=== PATIENT | female | born 1945 | race Caucasian/White ===

== ENCOUNTER 2021-11-24 22:19 | Emergency (ER) | payer OTHER ==
[2021-11-25 00:30] LABS: SARS-COV-2 RT PCR NEGATIVE (NEGATIVE)
--- NOTE | 2021-11-25 01:48 | ER ---
Nurse's Notes [facility] Name: Sandy Bui Age: 76 yrs Sex: Female : 1945 Arrival Date: 11/24/2021 Time: 22:21 Bed 16 Private MD: Diagnosis: Acute upper respiratory infection, unspecified;Viral infection, unspecified Presentation: 11/24 22:38 Chief complaint: Patient states: I think I might have covid, I woke up with a horrible vc1 sore throat, my nasal passages are burning, I have a headache, my ears burn. My niece and her daughter both have covid and this is how they started out. I wanted to get checked out since I do have COPD. Coronavirus screen: Vaccine status: Patient reports receiving the 2nd dose of the covid vaccine. Moderna for 1st, 2nd, and booster. congestion, cough unrelated to allergies, fatigue, fever, headache, muscle pain, runny nose, sore throat, Client presents with at least one sign or symptom that may indicate coronavirus-19. Standard/surgical mask placed on the client. Ebola Screen: No symptoms or risks identified at this time. Onset: The symptoms/episode began/occurred this morning. Anaphylaxis evaluation, no signs or symptoms of anaphylaxis were noted. Risk Assessment: Do you want to hurt yourself or someone else? Patient reports no desire to harm self or others. Onset of symptoms was November 24, 2021. 22:38 Method Of Arrival: Ambulatory vc1 22:51 Initial Sepsis Screen: Does the patient meet any 2 criteria? No. Patient's initial vc1 sepsis screen is negative. Does the patient have a suspected source of infection? No. Patient's initial sepsis screen is negative. 22:51 Acuity: LISA 4 vc1 Triage Assessment: 22:44 General: Appears in no apparent distress. comfortable, Behavior is calm, cooperative, vc1 appropriate for age. Pain: Complains of pain in burning in nasal passages, throat, and ears. Pain does not radiate. Pain currently is 3 out of 10 on a pain scale. Quality of pain is described as burning. EENT: Reports nasal congestion nasal discharge pain when swallowing. Neuro: No deficits noted. Historical: - Allergies: 22:41 Sulfa (Sulfonamide Antibiotics); vc1 22:41 Codeine; vc1 - Home Meds: 22:41 duloxetine 20 mg oral CDRS [Active]; amlodipine 2.5 mg tab [Active]; potassium chloride vc1 10 mEq Oral cpER [Active]; gabapentin 300 mg oral cap [Active]; furosemide 20 mg Oral tab [Active]; tramadol 50 mg Oral tab [Active]; 22:44 Trilegy Inhaler [Active]; vc1 - PMHx: 22:41 Chronic obstructive lung disease; Fibromyalgia; vc1 - PSHx: 22:41 Total abdominal hysterectomy; vc1 - Immunization history:: Adult Immunizations up to date, Client reports receiving the 2nd dose of the Covid vaccine, Moderna plus booster. - Social history:: Smoking status: Patient denies any tobacco usage or history of. Screenin:53 Abuse screen: Denies threats or abuse. Nutritional screening: No deficits noted. vc1 Tuberculosis screening: No symptoms or risk factors identified. Fall Risk None identified. Assessment: 22:54 Respiratory: Airway is patent Respiratory effort is even, unlabored, Breath sounds are vc1 diminished in left lower lobe and right lower lobe. Vital Signs: 22:47 BP 154 / 73; Pulse 65; Resp 14; Temp 98.6; Pulse Ox 96% on R/A; Weight 70.31 kg; Height vc1 5 ft. 4 in. (162.56 cm); Pain 3/10; 22:51 BP 154 / 73; Pulse 65; Resp 14; Temp 98.6; Pulse Ox 96% on R/A; Weight 70.31 kg; Height vc1 5 ft. 4 in. (162.56 cm); Pain 3/10; 22:53 BP 142 / 73; vc1 22:51 Body Mass Index 26.61 (70.31 kg, 162.56 cm) vc1 ED Course: 22:21 Patient arrived in ED. bp1 22:47 Arm band placed on right wrist. vc1 22:52 Triage completed. vc1 22:57 COVID swab sent to lab. Flu and/or RSV swab sent to lab. Strep swab sent to lab. lt3 22:58 Patient has correct armband on for positive identification. vc1 23:15 Julio Martinez MD is Attending Physician. kdr 23:34 Lucio Gould RN is Primary Nurse. mr2 23:58 No provider procedures requiring assistance completed. Patient did not have IV access mr2 during this emergency room visit. Administered Medications: No medications were administered Outcome: 11/25 01:47 Discharge ordered by . raul 02:04 Discharged to home ambulatory. mr2 02:04 Condition: stable 02:04 Discharge instructions given to patient. 02:04 Patient left the ED. mr2 Signatures: Julio Martinez MD MD kdr Pania[place], Brittany bp1 Reynard, Mike, RN RN mr2 Patience Martinez 3 Rand Aquino RN RN vc1
--- NOTE | 2021-11-25 01:48 | EDPHYS ---
Physician Documentation [facility] Name: Sandy Bui Age: 76 yrs Sex: Female : 1945 Arrival Date: 11/24/2021 Time: 22:21 Bed 16 Private MD: ED Physician Julio Martinez HPI: 11/25 01:43 This 76 yrs old Female presents to ER via Ambulatory with complaints of Cough, Runny kdr Nose, Sneezing. 01:43 The patient or guardian reports cough, that is intermittent, described as mild, flu kdr symptoms, arthralgias, myalgias, no appetite. Onset: The symptoms/episode began/occurred yesterday. Severity of symptoms: At their worst the symptoms were mild, just prior to arrival, in the emergency department the symptoms are unchanged. The patient has not experienced similar symptoms in the past. The patient has not recently seen a physician. Woke today with severe headache, sore throat, congested nasal passages and her ears burning. She indicated that her niece and granddaughter both have COVID and that they reported similar symptoms at the onset. She is otherwise stable and does not appear acutely toxic on presentation. Historical: - Allergies: 11/24 22:41 Sulfa (Sulfonamide Antibiotics); vc1 22:41 Codeine; vc1 - Home Meds: 22:41 duloxetine 20 mg oral CDRS [Active]; amlodipine 2.5 mg tab [Active]; potassium chloride vc1 10 mEq Oral cpER [Active]; gabapentin 300 mg oral cap [Active]; furosemide 20 mg Oral tab [Active]; tramadol 50 mg Oral tab [Active]; 22:44 Trilegy Inhaler [Active]; vc1 - PMHx: 22:41 Chronic obstructive lung disease; Fibromyalgia; vc1 - PSHx: 22:41 Total abdominal hysterectomy; vc1 - Immunization history:: Adult Immunizations up to date, Client reports receiving the 2nd dose of the Covid vaccine, Moderna plus booster. - Social history:: Smoking status: Patient denies any tobacco usage or history of. ROS: 11/25 01:44 Constitutional: Negative for fever, chills, and weight loss, Eyes: Negative for injury, kdr pain, redness, and discharge, Neck: Negative for injury, pain, and swelling, Cardiovascular: Negative for chest pain, palpitations, and edema, Respiratory: Negative for shortness of breath, cough, wheezing, and pleuritic chest pain, Abdomen/GI: Negative for abdominal pain, nausea, vomiting, diarrhea, and constipation, Back: Negative for injury and pain, : Negative for injury, bleeding, discharge, and swelling, MS/Extremity: Negative for injury and deformity, Skin: Negative for injury, rash, and discoloration, Neuro: Negative for headache, weakness, numbness, tingling, and seizure activity. Psych: Negative for depression, anxiety, suicide ideation, homicidal ideation, and hallucinations, Allergy/Immunology: Negative for hives, rash, and allergies, Endocrine: Negative for neck swelling, polydipsia, polyuria, polyphagia, and marked weight changes, Hematologic/Lymphatic: Negative for swollen nodes, abnormal bleeding, and unusual bruising. Respiratory: Positive for cough, Negative for dyspnea on exertion, hemoptysis, orthopnea, pleurisy, shortness of breath, sputum production, wheezing. Exam: 01:44 Constitutional: This is a well developed, well nourished patient who is awake, alert, kdr and in no acute distress. Head/Face: Normocephalic, atraumatic. Eyes: Pupils equal round and reactive to light, extra-ocular motions intact. Lids and lashes normal. Conjunctiva and sclera are non-icteric and not injected. Cornea within normal limits. Periorbital areas with no swelling, redness, or edema. Neck: Trachea midline, no thyromegaly or masses palpated, and no cervical lymphadenopathy. Supple, full range of motion without nuchal rigidity, or vertebral point tenderness. No Meningismus. Chest/axilla: Normal chest wall appearance and motion. Nontender with no deformity. No lesions are appreciated. Cardiovascular: Regular rate and rhythm with a normal S1 and S2. No gallops, murmurs, or rubs. Normal PMI, no JVD. No pulse deficits. Respiratory: Lungs have equal breath sounds bilaterally, clear to auscultation and percussion. No rales, rhonchi or wheezes noted. No increased work of breathing, no retractions or nasal flaring. Abdomen/GI: Soft, non-tender, with normal bowel sounds. No distension or tympany. No guarding or rebound. No evidence of tenderness throughout. Back: No spinal tenderness. No costovertebral tenderness. Full range of motion. Skin: Warm, dry with normal turgor. Normal color with no rashes, no lesions, and no evidence of cellulitis. MS/ Extremity: Pulses equal, no cyanosis. Neurovascular intact. Full, normal range of motion. Neuro: Awake and alert, GCS 15, oriented to person, place, time, and situation. Cranial nerves II-XII grossly intact. Motor strength 5/5 in all extremities. Sensory grossly intact. Cerebellar exam normal. Normal gait. Psych: Awake, alert, with orientation to person, place and time. Behavior, mood, and affect are within normal limits. Vital Signs: 11/24 22:47 BP 154 / 73; Pulse 65; Resp 14; Temp 98.6; Pulse Ox 96% on R/A; Weight 70.31 kg; Height vc1 5 ft. 4 in. (162.56 cm); Pain 3/10; 22:51 BP 154 / 73; Pulse 65; Resp 14; Temp 98.6; Pulse Ox 96% on R/A; Weight 70.31 kg; Height vc1 5 ft. 4 in. (162.56 cm); Pain 3/10; 22:53 BP 142 / 73; vc1 22:51 Body Mass Index 26.61 (70.31 kg, 162.56 cm) vc1 MDM: 11/25 01:44 Data reviewed: vital signs, nurses notes, lab test result(s). Counseling: I had a kdr detailed discussion with the patient and/or guardian regarding: the historical points, exam findings, and any diagnostic results supporting the discharge/admit diagnosis, lab results, radiology results, the need for outpatient follow up. 01:47 Patient medically screened. kdr 11/24 22:54 Order name: Strep; Complete Time: 01:41 vc1 11/24 22:54 Order name: Group A Streptococcus Rapid Sc; Complete Time: 00:27 EDMS 11/24 23:55 Order name: Throat Culture EDMS Administered Medications: No medications were administered Disposition Summary: 11/25/21 01:47 Discharge Ordered Location: Home kdr Problem: new kdr Symptoms: are unchanged kdr Condition: Stable kdr Diagnosis - Acute upper respiratory infection, unspecified kdr - Viral infection, unspecified kdr Followup: kdr - With: Private Physician - When: 2 - 3 days - Reason: If symptoms return, Further diagnostic work-up, Recheck today's complaints, Continuance of care, Re-evaluation by your physician Discharge Instructions: - Discharge Summary Sheet kdr - Viral Respiratory Infection kdr - COVID-19 kdr - COVID-19: What Your Test Results Mean - [facility] kdr - COVID-19 Frequently Asked Questions kdr - 3 Eli Steps to Take While Waiting for Your COVID-19 Test Result - [facility] kdr - 10 Things You Can Do to Manage Your COVID-19 Symptoms at Home - [facility] kdr - COVID-19: Quarantine vs. Isolation - [facility] kdr Forms: - Medication Reconciliation Form kdr - Thank You Letter kdr Signatures: Dispatcher [employer] Julio Bhatia MD MD kdr Rand Aquino RN RN vc1
[2021-11-25 02:10] VITALS: TEMP 98.6; O2SAT 96
[2021-11-25 02:13] VITALS: BP 142/73
== END 2021-11-25 02:04 | disposition home or self-care (01) ==
LOC: ER 22:19
DX: J06.9 Acute upper respiratory infection, unspecified (principal); Z20.822 Contact with and (suspected) exposure to COVID-19; Z88.2 Allergy status to sulfonamides
CPT/HCPCS: 87070; 87081; 0241U; 99283

== ENCOUNTER 2024-03-28 17:13 | Emergency (ER) | payer OTHER ==
[2024-03-28] MEDS ORDERED: TDAP (DIPHTH,PERTUSS(ACELL),TET VAC) 0.5 ML VIAL IMVAC ONE (17:38)
[2024-03-28] MEDS ORDERED: LIDOCAINE 1% MPF 5 ML VIAL ONE (17:38)
--- NOTE | 2024-03-28 18:30 | ER ---
Nurse's Notes [facility] Name: Sandy Bui Age: 78 yrs Sex: Female : 1945 Arrival Date: 03/28/2024 Time: 17:13 Bed 4 Private MD: Diagnosis: Laceration without foreign body of knee Presentation: 03/28 17:17 Coronavirus screen: Client denies travel out of the [place] in the last 14 days. At this ll1 time, the client does not indicate any symptoms associated with coronavirus-19. Ebola Screen: Patient denies travel to an Ebola-affected area in the 21 days before illness onset. Initial Sepsis Screen: Does the patient meet any 2 criteria? No. Patient's initial sepsis screen is negative. Does the patient have a suspected source of infection? No. Patient's initial sepsis screen is negative. Risk Assessment: Do you want to hurt yourself or someone else? Patient reports no desire to harm self or others. 17:17 Method Of Arrival: Ambulatory 1 17:20 Chief complaint: Patient states: L knee laceration 30 min [employer]. Reaching for a chain on ll1 ceiling fan, fell onto L knee. Onset of symptoms was March 28, 2024. 17:20 Acuity: LISA 3 ll1 Triage Assessment: 17:28 General: Appears uncomfortable, Behavior is calm, cooperative, appropriate for age. ll1 Pain: Complains of pain in L knee Quality of pain is described as aching. Derm: Reports laceration L knee. Musculoskeletal: Reports pain in L knee. Injury Description: Laceration. Historical: - Allergies: 17:17 Codeine; ll1 17:17 Sulfa (Sulfonamide Antibiotics); ll1 17:17 Soy; ll1 - PMHx: 17:17 Chronic obstructive lung disease; Fibromyalgia; ll1 - PSHx: 17:17 Total abdominal hysterectomy; ll1 - Immunization history:: Adult Immunizations up to date. - Infectious Disease History:: Denies. - Social history:: Smoking status: Patient denies any tobacco usage or history of. Screenin:46 [facility] ED Fall Risk Assessment (Adult) History of falling in the last 3 months, iw including since admission Yes- single mechanical fall (1 pt) Confusion or Disorientation No (0 pts) Intoxicated or Sedated No (0 pts) Impaired Gait No (0 pts) Mobility Assist Device Used No (0 pt) Altered Elimination No (0 pt) Score/Fall Risk Level 0 - 2 = Low Risk. Abuse screen: Denies threats or abuse. Denies injuries from another. Nutritional screening: No deficits noted. Tuberculosis screening: No symptoms or risk factors identified. Assessment: 17:45 General: Appears in no apparent distress. Behavior is calm, cooperative. Pain: iw Complains of pain in left knee. Neuro: Level of Consciousness is awake, alert, obeys commands, Oriented to person, place, time, situation, Moves all extremities. Cardiovascular: Patient's skin is warm and dry. Respiratory: Respiratory effort is even, unlabored, Respiratory pattern is regular, symmetrical. GI: No signs and/or symptoms were reported involving the gastrointestinal system. Derm: Skin is intact, is healthy with good turgor. Musculoskeletal: Range of motion: intact in all extremities. Injury Description: Laceration sustained to left knee is 0.5 to 2.5 cm long, was sustained 1-2 hours ago. a small amount of bleeding noted at this time. Vital Signs: 17:20 BP 173 / 61; Pulse 73; Resp 17; Temp 97.1; Pulse Ox 98% ; Weight 71.67 kg; Height 5 ft. ll1 4 in. ; Pain 5/10; 17:20 Body Mass Index 27.12 (71.67 kg, 162.56 cm) ll1 17:20 Pain Scale: Adult ll1 ED Course: 17:16 Patient arrived in ED. ll1 17:17 Arm band placed on. ll1 17:18 Catrachita Cowart PA-C [facility]. sb4 17:18 Momo Mejia MD is Attending Physician. sb4 17:22 Triage completed. ll1 17:29 Patient placed in an exam room, on a stretcher. ll1 17:36 Blanca Van, DIETER is Primary Nurse. iw 18:30 Assist provider with laceration repair on left knee that was 2.5 cm. or less using iw sutures. Set up tray. Performed by Catrachita Cowart PA-C Dressed with 4X4s, Patient tolerated well. Patient did not have IV access during this emergency room visit. 18:45 Patient has correct armband on for positive identification. Provided Education on: . iw Administered Medications: 17:44 Drug: Boostrix Tdap IM 0.5 ml IM once; as a single dose Route: IM; Site: left deltoid; iw 18:29 Drug: Lidocaine Infiltration (1 %) 5 ml 5 ml Infiltration once; to bedside Volume: 5 sb4 ml; Route: Infiltration; Medication: 17:46 Vaccine Information Statement (VIS) provided today. Questions and/or concerns iw addressed. VIS edition date: June 23, 2021. Outcome: 18:30 Discharge ordered by MD. vera4 18:45 Discharged to home ambulatory, iw 18:45 Condition: good 18:45 Discharge instructions given to patient, Instructed on discharge instructions, follow up and referral plans. medication usage, Demonstrated understanding of instructions, follow-up care, medications, 18:45 Patient left the ED. iw Signatures: Blanca Van RN RN iw Lilliam Ribeiro RN RN ll1 Catrachita Cowart, PADimasC PATeddy sb4 Corrections: (The following items were deleted from the chart) 17:23 17:20 Pulse 73bpm; Resp 17bpm; Pulse Ox 98%; Temp 97.1F; 71.67 kg; Height 5 ft. 4 in.; ll1 BMI: 27.1; Pain 5/10, Adult; ll1 17:33 17:20 Chief complaint: Patient states: L knee laceration just 30 min [employer]. Reaching for ll1 a chain on ceiling fan, fell onto L knee. ll1
--- NOTE | 2024-03-28 18:30 | EDPHYS ---
Physician Documentation [facility] Name: Sandy Bui Age: 78 yrs Sex: Female : 1945 Arrival Date: 03/28/2024 Time: 17:13 Bed 4 Private MD: ED Physician Momo Mejia HPI: 03/28 17:35 This 78 yrs old Female presents to ER via Ambulatory with complaints of Knee laceration.sb4 17:35 The patient has a laceration occurred at an office, and there are no complicating sb4 factors. The injury was accidental. The laceration(s) is(are) located on the left knee. Onset: The symptoms/episode began/occurred just prior to arrival. Associated signs and symptoms: The patient has no apparent associated signs or symptoms. The patient has not experienced similar symptoms in the past. The patient has not recently seen a physician. was reaching up for the overhead fan cord, fell forward onto knees, sustained laceration to left knee. Historical: - Allergies: 17:17 Codeine; ll1 17:17 Sulfa (Sulfonamide Antibiotics); ll1 17:17 Soy; ll1 - PMHx: 17:17 Chronic obstructive lung disease; Fibromyalgia; ll1 - PSHx: 17:17 Total abdominal hysterectomy; ll1 - Immunization history:: Adult Immunizations up to date. - Infectious Disease History:: Denies. - Social history:: Smoking status: Patient denies any tobacco usage or history of. ROS: 17:35 Constitutional: Negative for fever, chills, and weight loss, sb4 17:35 Skin: Positive for laceration(s), of the left knee, 17:35 All other systems are negative, Exam: 17:35 Constitutional: This is a well developed, well nourished patient who is awake, alert, sb4 and in no acute distress. Head/Face: Normocephalic, atraumatic. Eyes: Extra-ocular motions intact. Periorbital areas with no swelling, redness, or edema. ENT: Mucous membranes moist. MS/ Extremity: Pulses equal, no cyanosis. Neurovascular intact. Full, normal range of motion. Neuro: Awake and alert, GCS 15, oriented to person, place, time, and situation. Motor strength 5/5 in all extremities. Sensory grossly intact. 17:35 Skin: injury, laceration(s), the wound is approximately 3 cm(s), with a depth of .3 cm(s), of the left knee, that can be described as clean, no foreign body, linear, with mild bleeding, Vital Signs: 17:20 BP 173 / 61; Pulse 73; Resp 17; Temp 97.1; Pulse Ox 98% ; Weight 71.67 kg; Height 5 ft. ll1 4 in. ; Pain 5/10; 17:20 Body Mass Index 27.12 (71.67 kg, 162.56 cm) ll1 17:20 Pain Scale: Adult ll1 Laceration: 18:34 Wound Repair of 4cm ( 1.6in ) subcutaneous laceration to left knee. Distal sb4 neuro/vascular/tendon intact. Anesthesia: Local anesthetic administered with 5 mls of 1% lidocaine. Wound prep: Moderate cleansing with betadine by me, Wound irrigation with saline by me, Wound explored. Skin closed with 4 4-0 Prolene using simple sutures and sterile technique. Dressed with non-adherent dressing. Patient tolerated well. MDM: 17:19 Patient medically screened. sb4 18:29 Data reviewed: vital signs, nurses notes, and as a result, I will discharge patient. sb4 Counseling: I had a detailed discussion with the patient and/or guardian regarding the historical points, exam findings, and any diagnostic results supporting the discharge/admit diagnosis, the need for outpatient follow up, for suture removal in 10-14 days. 03/28 18:29 Order name: Wound dressing; Complete Time: 18:44 sb4 Administered Medications: 17:44 Drug: Boostrix Tdap IM 0.5 ml IM once; as a single dose Route: IM; Site: left deltoid; iw 18:29 Drug: Lidocaine Infiltration (1 %) 5 ml 5 ml Infiltration once; to bedside Volume: 5 sb4 ml; Route: Infiltration; Disposition Summary: 03/28/24 18:30 Discharge Ordered Notes: Location: Home sb4 Problem: new sb4 Symptoms: have improved sb4 Condition: Stable sb4 Diagnosis - Laceration without foreign body of knee sb4 Followup: sb4 - With: Private Physician - When: 10 - 14 days - Reason: Staple/Suture removal Discharge Instructions: - Discharge Summary Sheet sb4 - Laceration Care, Adult, [id number] sb4 Forms: - Patient Portal Instructions sb4 - Leadership Thank You Letter sb4 Signatures: Blanca Van, RN RN Lilliam Rogers RN RN ll1 Catrachita Cowart PA-C PA-C sb4
[2024-03-28 19:27] VITALS: BP 173/61; TEMP 97.1; O2SAT 98
== END 2024-03-28 18:45 | disposition home or self-care (01) ==
LOC: ER 17:13
PROC: 0HQLXZZ Repair Left Lower Leg Skin, External Approach (ICD-10-PCS; principal; 2024-03-28)
DX: S81.012A Laceration without foreign body, left knee, initial encounter (principal); Z88.2 Allergy status to sulfonamides; Z88.5 Allergy status to narcotic agent; Z91.018 Allergy to other foods
CPT/HCPCS: 96372; 99284; 12002; J2001

== ENCOUNTER 2024-08-17 17:51 | Emergency (ER) | payer OTHER ==
[2024-08-17 18:56] LABS: Absolute Basophils 0.1 K/uL (0-0.5); Absolute Eosinophils 0.5 K/uL (0-0.5); Absolute Lymphocytes (CBC) 2.1 K/uL (0.7-4.9); Absolute Monocytes 0.7 K/uL (0.1-1.3); Absolute Neutrophil 5.9 K/uL (1.8-8.0); Basophils % 0.7 % (0-1.3); Eosinophils % 5.5 % (0-4.4); Hemoglobin 12.4 g/dL (12.0-15.0); Lymphocytes % 22.2 % (15.3-44.8); MCH 30.5 pg (27.0-35.0); MCHC 32.5 g/dL (32.0-36.0); MCV 93.9 fL (80-100); Monocytes % 7.7 % (3.3-12.3); Neutrophils % 63.9 % (41.7-73.7); Platelets 268 thou/uL (152-406); RBC Red Blood Cell Count 4.05 M/uL (3.86-4.86); Red Cell Distribution Width 14.4 % (12.1-15.2)
[2024-08-17] MEDS ORDERED: FENTANYL CITR 100 MCG/2 ML ONE ×2 (18:57→23:12)
[2024-08-17] MEDS ORDERED: ONDANSETRON 4 MG/2 ML VIAL ONE (18:57)
[2024-08-17 19:05] LABS: PTT, Activated Partial Thromb 30.5 SECONDS (24.3-36.9); Protime INR 1.07
[2024-08-17 19:12] LABS: Albumin 2.5 g/dL (3.4-5.0); Albumin/Globulin Ratio 0.7 (1.1-1.8); Anion Gap 5.4 mEq/L (5.0-15.0); Bilirubin Total 0.5 mg/dL (0.2-1.0); Globulin 3.6 g/dL (2.3-3.5); Potassium 3.4 mEq/L (3.5-5.1); Protein, Total 6.1 g/dL (6.4-8.2)
--- NOTE | 2024-08-17 19:31 | RAD REPORT ---
EXAMINATION: Tib Fib Right CLINICAL INDICATION: Leg pain FINDINGS: An intramedullary juan r and screws affix an oblique fracture mid to distal right tibia. Mild to moderat e displacement of the fracture fragments. The fracture appears subacute. 3.5 cm density surrounds the fracture site. It is of uncertain etiology but presumably is postsurgical. Sideplate and screws affix a distal fibular fracture. Mildly displaced fracture proximal fibula.
--- NOTE | 2024-08-17 20:55 | RAD REPORT ---
EXAM:Extremity Venous Uni Ltd HISTORY: Leg pain TECHNIQUE: Sonographic evaluation right lower extremity performed.Grayscale, color and spectral roseanne sis performed on all vessels COMPARISON: None. FINDINGS: Right common femoral, superficial femoral, greater saphenous, popliteal and right posterior tibial veins are compressible and demonstrate augmentation. Doppler demonstrates good flow. IMPRESSION: No evidence of deep venous thrombosis involving the right lower extremity.
--- NOTE | 2024-08-17 21:22 | RAD REPORT ---
EXAM: CT lower extremity without contrast CLINICAL INDICATION: Leg pain and swelling TECHNIQUE: CT of the right lower extremity was performed without contrast. Images were obtained from above the knee to the ankle. Axial, sagittal, and coronal reconstructed images. This exam was performed according to our [facility] dose-optimization program, which includes automated exposure control, adjustment of the mA and/or kV according to patient size and/or use of iterative reconstruction technique. COMPARISON: X-ray August 17, 2024 FINDINGS: An intramedullary juan r has been placed into a mid to distal tibial fracture. There is moderate displac ement of fracture fragments. Radiopaque material near the fracture site presumably post surgical in nature and should be correlated clinically. Ill-defined fluid is present within the adjacent subcutaneous tissues. A discrete well-circumscribed abscess not visualized. Sideplate and screws affix a distal fibular fracture in good alignment. Moderately displaced fracture proximal fibula present. IMPRESSION: Intramedullary juan r and screws affixing a moderately displaced comminuted fracture distal tibia. Radiopaque density surrounding the fracture site presumably postsurgical in nature. It may be antibio tic material and should be correlated clinically. Ill-defined fluid is present within the adjacent subcutaneous tissues without visualization of a disc rete well-formed abscess.
[2024-08-17] MEDS ORDERED: CLINDAMYCIN 600MG/D5W 50 ML IV ONE (22:41)
--- NOTE | 2024-08-17 23:11 | EDPHYS ---
Physician Documentation [facility] Name: Sandy Bui Age: 79 yrs Sex: Female : 1945 Arrival Date: 08/17/2024 Time: 17:51 Bed 13 Private MD: ED Physician Hehsam Urrutia HPI: 08/17 18:02 This 79 yrs old Female presents to ER via EMS with complaints of Wound Check. sb4 18:02 Patient reports fall 1 week ago resulting in an open right tib-fib fracture. She had an sb4 ORIF and was out done that same day. She was discharged 4 days ago home, states that she has been doing well with her pain, bowels, movement. States that she woke up from a nap today feeling very poorly, with a low-grade fever, called EMS. has not had the wound checked since. Is taking cephalexin and xarelto post operatively. Historical: - Allergies: 17:59 Codeine; cm10 17:59 Soy; cm10 17:59 Sulfa (Sulfonamide Antibiotics); cm10 17:59 hydrocodone bitartrate; cm10 - PMHx: 17:59 Chronic obstructive lung disease; Fibromyalgia; Asthma; Hypertensive disorder; cm10 - PSHx: 17:59 Total abdominal hysterectomy; Right leg; cm10 - Immunization history:: Adult Immunizations up to date. - Infectious Disease History:: Denies. Denies. - Social history:: Smoking status: Patient denies any tobacco usage or history of. ROS: 18:02 Cardiovascular: Negative for chest pain, palpitations, and edema, sb4 18:02 Constitutional: Positive for fatigue, fever, malaise, 18:02 Skin: Positive for swelling, of the right leg, 18:02 All other systems are negative, Exam: 18:02 Constitutional: This is a well developed, well nourished patient who is awake, alert, sb4 and in no acute distress. Head/Face: Normocephalic, atraumatic. Eyes: Extra-ocular motions intact. Periorbital areas with no swelling, redness, or edema. ENT: Mucous membranes moist. 18:02 Skin: Wound recheck: Staple laceration closure: no evidence of dehiscence, moderate drainage, moderate erythema, moderate swelling, right allen, Vital Signs: 17:58 BP 208 / 86; Pulse 70; Resp 16; Temp 98.4(O); Pulse Ox 100% ; Weight 69.85 kg; Height 5 cm10 ft. 4 in. ; Pain 5/10; 19:00 BP 193 / 64; Pulse 66; Resp 17; Pulse Ox 100% on R/A; cm10 20:00 BP 188 / 58; Pulse 78; Resp 16; Pulse Ox 100% on R/A; cm10 21:00 BP 173 / 60; Pulse 74; Resp 13; Pulse Ox 100% on R/A; cm10 22:53 BP 156 / 58; Pulse 74; Resp 17; Pulse Ox 97% ; Pain 4/10; rg5 23:19 BP 158 / 56; Pulse 72; Resp 16; Pulse Ox 99% on R/A; rg5 17:58 Body Mass Index 26.43 (69.85 kg, 162.56 cm) cm10 17:58 Pain Scale: Adult cm10 22:53 Pain Scale: Adult rg5 MDM: 18:01 Patient medically screened. sb4 23:09 Data reviewed: vital signs, nurses notes, EMS record, lab test result(s), radiologic sb4 studies, and as a result, I will discharge patient. Consideration of Admission/Observation Escalation of care including admission/observation considered. Management of patient was discussed with the following: Civil Drafting Technician: Dr. Rodriguez, recommends escalating antibiotics and follow up in office. no weight bearing. Care significantly affected by the following chronic conditions: Hypertension, Chronic Obstructive Pulmonary Disease. Counseling: I had a detailed discussion with the patient and/or guardian regarding the historical points, exam findings, and any diagnostic results supporting the discharge/admit diagnosis, the presence of at least one elevated blood pressure reading (>120/80) during this emergency department visit, lab results, radiology results, the need for outpatient follow up, a orthopedic surgeon, to return to the emergency department if symptoms worsen or persist or if there are any questions or concerns that arise at home. 08/17 18:02 Order name: Blood Culture Adult (2) sb4 08/17 18:02 Order name: CBC with Diff; Complete Time: 18:58 sb4 08/17 18:02 Order name: CMP; Complete Time: 19:13 sb4 08/17 18:02 Order name: Lactate w/ 2H reflex if indic.; Complete Time: 19:07 sb4 08/17 18:02 Order name: Protime (+inr); Complete Time: 19:07 sb4 08/17 18:02 Order name: Ptt, Activated; Complete Time: 19:07 sb4 08/17 18:31 Order name: Wound Culture sb4 08/17 18:02 Order name: Tib Fib Right XRAY; Complete Time: 19:32 sb4 08/17 19:30 Order name: Extremity Venous Uni Ltd US; Complete Time: 20:56 sb4 08/17 19:53 Order name: Low Extremity Wo Cont; Complete Time: 21:26 EDMS 08/17 18:02 Order name: Cardiac monitoring; Complete Time: 18:05 sb4 08/17 18:02 Order name: IV Saline Lock - Large Bore; Complete Time: 18:05 sb4 08/17 18:02 Order name: Labs collected and sent; Complete Time: 18:51 sb4 08/17 18:02 Order name: O2 Per Protocol; Complete Time: 18:05 sb4 08/17 18:02 Order name: O2 Sat Monitoring; Complete Time: 18:05 sb4 08/17 18:02 Order name: Vital Signs; Complete Time: 18:05 sb4 08/17 18:12 Order name: Wound Care; Complete Time: 19:33 sb4 Administered Medications: 19:06 Drug: fentaNYL (PF) IVP 50 mcg IVP once Route: IVP; Site: right forearm; cm10 19:33 Follow up: Response: No adverse reaction cm10 19:06 Drug: Ondansetron IVP 4 mg IVP once; over 2 minutes Route: IVP; Site: right forearm; cm10 19:33 Follow up: Response: No adverse reaction cm10 22:40 Drug: Clindamycin IVPB 600 mg IVPB once over 30 mins; (mix in 50 mL) Route: IVPB; rg5 Infused Over: 30 mins; Site: right forearm; 23:22 Follow up: Response: No adverse reaction; IV Status: Completed infusion; IV Intake: [id number] 23:14 Drug: fentaNYL (PF) IVP 50 mcg IVP once Route: IVP; Site: right antecubital; rg5 23:45 Follow up: Response: No adverse reaction; Pain is decreased rg5 Disposition Summary: 08/17/24 23:11 Discharge Ordered Notes: Location: Home sb4 Problem: new sb4 Symptoms: have improved sb4 Condition: Stable sb4 Diagnosis - Infection of surgical wound, right lower leg sb4 Followup: sb4 - With: Adebayo Modi MD - When: 1 week - Reason: Recheck today's complaints, Re-evaluation by your physician Discharge Instructions: - Discharge Summary Sheet sb4 - How to Change Your Wound Dressing, [id number] sb4 - Sutures, [place], or Adhesive Wound Closure, [id number] sb4 Forms: - Antibiotic Education sb4 - Patient Portal Instructions sb4 - Leadership Thank You Letter sb4 Prescriptions: - Clindamycin HCl 300 mg Oral Capsule - take 1 capsule ORAL route every 6 hours for 10 days; 40 capsule; Refills: 0, sb4 Product Selection Permitted Addendum: 08/19/2024 17:12 Co-signature as Attending Physician, Hesham Urrutia MD I reviewed the patient's care r n provided by the Advanced Practice Provider and agree with the diagnosis and treatment plan. Signatures: Dispatcher [employer] EDHesham Hicks MD MD rn Brown, Sophia, PA-C PA-C sb4 Hailee Andrade RN RN cm10 Kiel Monge RN RN rg5 Corrections: (The following items were deleted from the chart) 08/17 18:03 18:03 BLOOD CULTURE*+BA.LAB.BRZ ordered. EDMS EDMS 18:03 18:03 CBC+H.LAB.BRZ ordered. EDDC EDMS 18:03 18:03 COMPREHENSIVE METABOLIC PANEL+C.LAB.BRZ ordered. EDDC EDMS 18:03 18:03 LACTATE+C.LAB.BRZ ordered. EDDC EDMS 18:03 18:03 PROTIME (+INR)+COAG.LAB.BRZ ordered. EDMS EDMS 18:03 18:03 PTT, ACTIVATED+COAG.LAB.BRZ ordered. EDDC EDMS 18:03 18:03 Tib Fib Right+RAD.RAD.BRZ ordered. EDDC EDMS 23:12 18:02 Patient reports fall 1 week ago resulting in right tib-fib fracture. She had an sb4 ORIF done that same day. She was discharged 4 days ago home, states that she has been doing well with her pain, bowels, movement. States that she woke up from a nap today feeling very poorly, with a low-grade fever, called EMS. has not had the wound checked since. Is taking cephalexin and xarelto post operatively. sb4
--- NOTE | 2024-08-17 23:11 | ER ---
Nurse's Notes [facility] Name: Sandy Bui Age: 79 yrs Sex: Female : 1945 Arrival Date: 08/17/2024 Time: 17:51 Bed 13 Private MD: Diagnosis: Infection of surgical wound, right lower leg Presentation: 08/17 17:58 Chief complaint: EMS states: Called to patient's home due to patient wanting leg to be cm10 checked. Pt had surgery on the right leg last Saturday due to having a Tib/Fib fracture. Pt states having a low grade temp of 99.1. Pt noted to have redness and surgical site. Coronavirus screen: Client denies travel out of the [place] in the last 14 days. Ebola Screen: Patient denies travel to an Ebola-affected area in the 21 days before illness onset. No symptoms or risks identified at this time. Initial Sepsis Screen: Does the patient meet any 2 criteria? No. Patient's initial sepsis screen is negative. Does the patient have a suspected source of infection? No. Patient's initial sepsis screen is negative. Risk Assessment: Do you want to hurt yourself or someone else? Patient reports no desire to harm self or others. Onset of symptoms was August 17, 2024. 17:58 Method Of Arrival: EMS: [facility] cm10 17:58 Acuity: LISA 3 cm10 18:00 Care prior to arrival: IV initiated. 20 GA, in the left forearm. cm10 Triage Assessment: 18:00 General: Appears in no apparent distress. comfortable, Behavior is calm, cooperative. cm10 Pain: Complains of pain in right leg Pain currently is 5 out of 10 on a pain scale. Neuro: No deficits noted. Level of Consciousness is awake, alert, obeys commands, Oriented to person, place, time, situation, Appropriate for age. Respiratory: No deficits noted. Airway is patent Respiratory effort is even, unlabored, Respiratory pattern is regular, symmetrical. Derm: Wound noted right allen Other: Surgical site. Historical: - Allergies: 17:59 Codeine; cm10 17:59 Soy; cm10 17:59 Sulfa (Sulfonamide Antibiotics); cm10 17:59 hydrocodone bitartrate; cm10 - PMHx: 17:59 Chronic obstructive lung disease; Fibromyalgia; Asthma; Hypertensive disorder; cm10 - PSHx: 17:59 Total abdominal hysterectomy; Right leg; cm10 - Immunization history:: Adult Immunizations up to date. - Infectious Disease History:: Denies. Denies. - Social history:: Smoking status: Patient denies any tobacco usage or history of. Screenin:39 [facility] ED Fall Risk Assessment (Adult) History of falling in the last 3 months, cm10 including since admission Yes- single mechanical fall (1 pt) Confusion or Disorientation No (0 pts) Intoxicated or Sedated No (0 pts) Impaired Gait Yes (1 pt) Mobility Assist Device Used Yes (1 pt) Altered Elimination No (0 pt) Score/Fall Risk Level 3 or more points = High Risk Oriented to surroundings, Maintained a safe environment, Hourly rounding (assess needs \T\ fall precautionary measures) done. Abuse screen: Denies threats or abuse. Denies injuries from another. Nutritional screening: No deficits noted. Tuberculosis screening: No symptoms or risk factors identified. Assessment: 21:41 Reassessment: Patient appears in no apparent distress at this time. No changes from cm10 previously documented assessment. Patient and/or family updated on plan of care and expected duration. Pain level reassessed. Patient is alert, oriented x 3, equal unlabored respirations, skin warm/dry/pink. 22:00 Reassessment: Patient and/or family updated on plan of care and expected duration. Pain rg5 level reassessed. Patient is alert, oriented x 3, equal unlabored respirations, skin warm/dry/pink. Patient states symptoms have improved. 23:00 Reassessment: Patient and/or family updated on plan of care and expected duration. Pain rg5 level reassessed. Patient is alert, oriented x 3, equal unlabored respirations, skin warm/dry/pink. Patient states feeling better. Vital Signs: 17:58 BP 208 / 86; Pulse 70; Resp 16; Temp 98.4(O); Pulse Ox 100% ; Weight 69.85 kg; Height 5 cm10 ft. 4 in. ; Pain 5/10; 19:00 BP 193 / 64; Pulse 66; Resp 17; Pulse Ox 100% on R/A; cm10 20:00 BP 188 / 58; Pulse 78; Resp 16; Pulse Ox 100% on R/A; cm10 21:00 BP 173 / 60; Pulse 74; Resp 13; Pulse Ox 100% on R/A; cm10 22:53 BP 156 / 58; Pulse 74; Resp 17; Pulse Ox 97% ; Pain 4/10; rg5 23:19 BP 158 / 56; Pulse 72; Resp 16; Pulse Ox 99% on R/A; rg5 17:58 Body Mass Index 26.43 (69.85 kg, 162.56 cm) cm10 17:58 Pain Scale: Adult cm10 22:53 Pain Scale: Adult rg5 ED Course: 17:57 Patient arrived in ED. cm10 17:59 Triage completed. cm10 18:00 Arm band placed on Patient placed in an exam room, on a stretcher. cm10 18:00 Patient has correct armband on for positive identification. Bed in low position. Call cm10 light in reach. Side rails up X2. Provided Education on: ER process and procedures,. Client placed on continuous cardiac and pulse oximetry monitoring. NIBP monitoring applied. telemetry monitor on. 18:00 Maintain EMS IV. Dressing intact. Good blood return noted. Site clean \T\ dry. Gauge \T\ cm 10 site: 20g Left forearm.. Flushed with 10 mL NS IV is patent, is intact. 18:01 Catrachita Cowart PA-C is PHCP. sb4 18:01 Hesham Urrutia MD is Attending Physician. sb4 18:37 Hailee Andrade, DIETER is Primary Nurse. cm10 18:51 Initial lab(s) drawn, by ED staff, sent to lab. Inserted saline lock: 20 gauge in right cm10 forearm, using aseptic technique. Blood collected. Flushed with 10 mL NS. 19:01 Wound Culture Sent. cm10 19:14 Tib Fib Right XRAY In Process Unspecified. EDMS 19:33 Wound care: to Surgical site located on right allen was cleaned with Hibiclens, dressed cm10 with 4X4s, Kerlix, Patient tolerated well. 20:14 Extremity Venous Uni Ltd US In Process Unspecified. EDMS 20:33 Low Extremity Wo Cont In Process Unspecified. EDMS 22:00 No provider procedures requiring assistance completed. rg5 22:05 Report given to DIETER Dyson. cm10 23:10 Adebayo Modi MD is Referral Physician. sb4 23:19 Kiel Monge, RN is Primary Nurse. rg5 23:21 IV discontinued, bleeding controlled, No redness/swelling at site. Pressure dressing rg5 applied. Administered Medications: 19:06 Drug: fentaNYL (PF) IVP 50 mcg IVP once Route: IVP; Site: right forearm; cm10 19:33 Follow up: Response: No adverse reaction cm10 19:06 Drug: Ondansetron IVP 4 mg IVP once; over 2 minutes Route: IVP; Site: right forearm; cm10 19:33 Follow up: Response: No adverse reaction cm10 22:40 Drug: Clindamycin IVPB 600 mg IVPB once over 30 mins; (mix in 50 mL) Route: IVPB; rg5 Infused Over: 30 mins; Site: right forearm; 23:22 Follow up: Response: No adverse reaction; IV Status: Completed infusion; IV Intake: [id number] 23:14 Drug: fentaNYL (PF) IVP 50 mcg IVP once Route: IVP; Site: right antecubital; rg5 23:45 Follow up: Response: No adverse reaction; Pain is decreased rg5 Medication: 18:39 VIS not applicable for this client. cm10 Intake: 23:22 IV: 50ml; Total: 50ml. rg5 Outcome: 23:11 Discharge ordered by . sb4 23:46 Discharged to home via wheelchair, with family, rg5 23:46 Condition: stable 23:46 Discharge instructions given to patient, family, 23:46 Patient left the ED. rg5 Signatures: Dispatcher [employer] Catrachita Pizano PA-C PA-C sb4 Hailee Andrade RN RN cm10 Kiel Monge RN RN rg5
[2024-08-18 00:17] VITALS: TEMP 98.4
[2024-08-18 00:48] VITALS: BP 158/56; O2SAT 99
== END 2024-08-17 23:46 | disposition home or self-care (01) ==
LOC: ER 17:51
DX: T81.49XA Infection following a procedure, other surgical site, initial encounter (principal)
CPT/HCPCS: 87040 ×2; 87070; 85025; 36415; 87205; 85610; 83605; 85730; 80053; 73700; 73590; 93971; 99285; J3010 ×2; J2405

== ENCOUNTER 2024-08-18 15:48 | Emergency (ER) | payer OTHER ==
[2024-08-18] MEDS ORDERED: HYDROMORPHONE HCL 1 MG/ML INJ ONE (18:50)
[2024-08-18] MEDS ORDERED: ONDANSETRON 4 MG/2 ML VIAL ONE (18:50)
[2024-08-18 18:57] LABS: Absolute Basophils 0.1 K/uL (0-0.5); Absolute Eosinophils 0.4 K/uL (0-0.5); Absolute Monocytes 0.9 K/uL (0.1-1.3); Absolute Neutrophil 6.8 K/uL (1.8-8.0); Basophils % 0.8 % (0-1.3); Eosinophils % 3.9 % (0-4.4); Hematocrit 35.5 % (36.0-45.0); Hemoglobin 11.9 g/dL (12.0-15.0); Lymphocytes % 19.7 % (15.3-44.8); MCH 31.1 pg (27.0-35.0); MCHC 33.5 g/dL (32.0-36.0); MCV 92.7 fL (80-100); MPV 9.6 fL (7.6-11.3); Monocytes % 8.7 % (3.3-12.3); Neutrophils % 66.9 % (41.7-73.7); Nucleated Red Blood Cells % 0.1 % (0-0); Platelets 297 thou/uL (152-406); RBC Red Blood Cell Count 3.83 M/uL (3.86-4.86); Red Cell Distribution Width 14.3 % (12.1-15.2)
[2024-08-18 19:03] LABS: PT Prothrombin Time 12.5 SECONDS (9.4-12.5); Protime INR 1.12
[2024-08-18 19:13] LABS: Albumin 2.5 g/dL (3.4-5.0); Albumin/Globulin Ratio 0.7 (1.1-1.8); Anion Gap 9.7 mEq/L (5.0-15.0); Bilirubin Total 0.5 mg/dL (0.2-1.0); Globulin 3.8 g/dL (2.3-3.5); Potassium 3.7 mEq/L (3.5-5.1); Protein, Total 6.3 g/dL (6.4-8.2)
--- NOTE | 2024-08-18 20:47 | EDPHYS ---
Physician Documentation [facility] Name: Sandy Bui Age: 79 yrs Sex: Female : 1945 Arrival Date: 08/18/2024 Time: 15:48 Bed 6 Private MD: ED Physician Thai Cruz HPI: 08/18 17:00 This 79 yrs old Female presents to ER via Wheelchair with complaints of Wound cp Infection, Pain. 17:00 The patient presents with pain. cp 17:00 The complaints affect the right lower leg. cp Historical: - Allergies: 16:15 Codeine; tm6 16:15 hydrocodone bitartrate; tm6 16:15 Soy; tm6 16:15 Sulfa (Sulfonamide Antibiotics); tm6 - PMHx: 16:15 Asthma; Chronic obstructive lung disease; Fibromyalgia; Hypertensive disorder; tm6 - PSHx: 16:15 right leg; Total abdominal hysterectomy; tm6 - Immunization history:: Client reports receiving the 2nd dose of the Covid vaccine. - Infectious Disease History:: Denies. - Social history:: Smoking status: Patient denies any tobacco usage or history of. ROS: 17:05 Constitutional: Positive for chills, fever, cp 17:05 Respiratory: Negative for cough, shortness of breath, wheezing, cp Exam: 18:35 ECG was reviewed by the Attending Physician. cp Vital Signs: 16:11 Pulse 74; Resp 18; Temp 97.3(TE); Pulse Ox 100% on R/A; Weight 69.85 kg; Height 5 ft. 4 tm6 in. ; Pain 10/10; 16:12 BP 166 / 68; MAP 95 mmHg; tm6 18:30 BP 188 / 59; Pulse 65; Resp 18; Pulse Ox 100% on R/A; db 19:22 BP 157 / 67; Pulse 71; Resp 18; Pulse Ox 94% on R/A; kj2 20:12 BP 168 / 80; Pulse 72; Resp 18; Pulse Ox 96% on R/A; kj2 22:11 BP 177 / 68; Pulse 67; Resp 15; Temp 97.3; Pulse Ox 100% ; Pain 0/10; bm8 23:35 BP 166 / 61; Pulse 71; Resp 18; Temp 97.6; Pulse Ox 100% on R/A; kj2 10 00:46 BP 194 / 67; Pulse 69; Resp 18; Temp 97.9(O); Pulse Ox 100% ; kj2 01:14 BP 147 / 52; Pulse 78; Resp 18; Temp 97.9; Pulse Ox 99% ; Pain 2/10; bm8 08/18 16:11 Body Mass Index 26.43 (69.85 kg, 162.56 cm) tm6 08/18 16:11 Pain Scale: Adult tm6 22:11 Pain Scale: Adult bm8 01:14 Pain Scale: Adult bm8 [place] Coma Score: 08/18 22:11 Eye Response: spontaneous(4). Motor Response: obeys commands(6). Verbal Response: bm8 oriented(5). Total: 15. 08/19 01:14 Eye Response: spontaneous(4). Motor Response: obeys commands(6). Verbal Response: bm8 oriented(5). Total: 15. MDM: 08/18 20:46 Patient medically screened. cp 08/18 16:53 Order name: CBC with Diff; Complete Time: 20:17 cp 08/18 21:57 Interpretation: Normal except: RBC 3.83; HGB 11.9; HCT 35.5. cp 08/18 16:53 Order name: CMP; Complete Time: 20:17 cp 08/18 22:45 Interpretation: Normal except: BUN 25; GFR 76; AST 51; ALT 63. cp 08/18 16:53 Order name: Lactate w/ 2H reflex if indic.; Complete Time: 20:17 cp 08/18 16:53 Order name: Protime (+inr); Complete Time: 20:17 cp 08/18 18:19 Order name: Blood Culture Adult (2) cp 08/18 18:23 Order name: CRP; Complete Time: 20:17 cp 08/18 16:53 Order name: Cardiac monitoring; Complete Time: 18:51 cp 08/18 16:53 Order name: IV Saline Lock - Large Bore; Complete Time: 18:51 cp 08/18 16:53 Order name: Labs collected and sent; Complete Time: 18:51 cp 08/18 16:53 Order name: O2 Per Protocol; Complete Time: 18:50 cp 08/18 16:53 Order name: O2 Sat Monitoring; Complete Time: 18:50 cp 08/18 16:53 Order name: Vital Signs; Complete Time: 18:50 cp EC:35 Rate is 64 beats/min. Rhythm is regular. TX interval is normal. QRS interval is normal. cp QT interval is normal. T waves are Inverted in lead aVR. Interpreted by me. Reviewed by me. Administered Medications: 18:50 Drug: HYDROmorphone IVP 1 mg IVP once Route: IVP; Site: right forearm; db 19:25 Follow up: Response: No adverse reaction; Pain is decreased kj2 18:50 Drug: Ondansetron IVP 4 mg IVP once; over 2 minutes Route: IVP; Site: right forearm; db 19:25 Follow up: Response: No adverse reaction kj2 22:07 Drug: vancoMYCIN IVPB 1 grams IVPB once over 2 hrs Route: IVPB; Infused Over: 2 hrs; bm8 Site: right forearm; 23:13 Follow up: Response: No adverse reaction; IV Status: Completed infusion; IV Intake: bm8 250ml 08/19 00:50 Drug: hydrALAZINE IVP 10 mg IVP once Route: IVP; Site: right forearm; kj2 01:16 Follow up: Response: No adverse reaction bm8 Disposition Summary: 08/18/24 20:46 Transfer Ordered Notes: Transfer Location: [facility] cp Reason: Higher level of care cp Condition: Stable cp Problem: an ongoing problem cp Symptoms: have improved cp Accepting Physician: DR Frank(08/19/24 01:16) bm8 Diagnosis - Cellulitis of right lower limb cp Forms: - Medication Reconciliation Form cp - SBAR form cp Signatures: Dispatcher [employer] EDMS Ace Prakash PA PA cp Margaret Coe, RN RN db Pepito Pack, RN RN tm6 Tristen Paul, RN RN bm8 Ellen Lui, RN RN kj2 Corrections: (The following items were deleted from the chart) 08/18 18:20 18:20 BLOOD CULTURE*+BA.LAB.BRZ ordered. EDMS EDMS 18:23 18:23 C-REACTIVE PROTEIN+C.LAB.BRZ ordered. EDMS EDMS 19:02 16:53 Accucheck ordered. cp db 20:54 20:46 Doctor cp cp 20:54 20:46 Cellulitis of groin cp cp 22:45 21:58 Normal except: BUN 25; GFR 76. cp cp 22:45 22:44 Normal except: BUN 25; GFR 76; AST 51. cp cp :27 20:54 Doctor cp cp 08/19 01:12 01:11 Data reviewed: vital signs, nurses notes, lab test result(s), radiologic studies, cp plain films, cp :12 01:11 ED course: VSS. Discussed with father results of today's testing. Will discharge cp to home for continued monitoring with instructions to return worsening symptoms. cp :16 08/18 23:27 DR Frank cp bm8 08/19 01:08/18 23:26 MS/extremity: Positive for erythema, pain, swelling, tenderness, of the cp right lower leg, cp 08/19 01:17 08/18 17:05 MS/extremity: Positive for erythema, pain, swelling, tenderness, of the cp right lower leg, cp
--- NOTE | 2024-08-18 20:47 | ER ---
Nurse's Notes [facility] Name: Sandy Bui Age: 79 yrs Sex: Female : 1945 Arrival Date: 08/18/2024 Time: 15:48 Bed 6 Private MD: Diagnosis: Cellulitis of right lower limb Presentation: 08/18 16:11 Coronavirus screen: Client denies travel out of the [place] in the last 14 days. Ebola tm6 Screen: Patient negative for fever greater than or equal to 101.5 degrees Fahrenheit, and additional compatible Ebola Virus Disease symptoms Patient denies exposure to infectious person. Patient denies travel to an Ebola-affected area in the 21 days before illness onset. No symptoms or risks identified at this time. Risk Assessment: Do you want to hurt yourself or someone else? Patient reports no desire to harm self or others. 16:11 Method Of Arrival: Wheelchair tm6 16:11 Acuity: LISA 3 tm6 16:12 Chief complaint: Patient states: a week ago I fell and had a compound fracture of right tm6 leg. Had surgery, got a juan r in it. Saturday morning went to my PCP here, was supposed to get home health care, but it has not gotten done. She was supposed to write prescriptions for pain but I'm allergic to the ones she prescribed me. I'm supposed to get some from pain management. My wound has not been looked at since my surgery. Last time I was here they said my wound was infected and gave me antibiotics and pain meds, but did not admit me. Today my doctor told me I needed me to be in the hospital. Initial Sepsis Screen: Does the patient meet any 2 criteria? No. Patient's initial sepsis screen is negative. Does the patient have a suspected source of infection? No. Patient's initial sepsis screen is negative. Onset of symptoms was August 11, 2024. Triage Assessment: 16:15 General: Appears in no apparent distress. Behavior is calm, cooperative. Pain: tm6 Complains of pain in right leg Pain currently is 10 out of 10 on a pain scale. Pain began one week ago. EENT: No signs and/or symptoms were reported regarding the EENT system. Neuro: Level of Consciousness is awake, alert, obeys commands, Oriented to person, place, time, situation. Cardiovascular: Patient's skin is warm and dry. Respiratory: Airway is patent Respiratory effort is even, unlabored, Respiratory pattern is regular, symmetrical. GI: No signs and/or symptoms were reported involving the gastrointestinal system. Abdomen is flat, non-distended. : No signs and/or symptoms were reported regarding the genitourinary system. Derm: No signs and/or symptoms reported regarding the dermatologic system. Musculoskeletal: Reports pain in right leg Pain is 10 out of 10 on a pain scale. Historical: - Allergies: 16:15 Codeine; tm6 16:15 hydrocodone bitartrate; tm6 16:15 Soy; tm6 16:15 Sulfa (Sulfonamide Antibiotics); tm6 - PMHx: 16:15 Asthma; Chronic obstructive lung disease; Fibromyalgia; Hypertensive disorder; tm6 - PSHx: 16:15 right leg; Total abdominal hysterectomy; tm6 - Immunization history:: Client reports receiving the 2nd dose of the Covid vaccine. - Infectious Disease History:: Denies. - Social history:: Smoking status: Patient denies any tobacco usage or history of. Screenin:00 [facility] ED Fall Risk Assessment (Adult) History of falling in the last 3 months, db including since admission Yes- single mechanical fall (1 pt) Confusion or Disorientation No (0 pts) Intoxicated or Sedated No (0 pts) Impaired Gait Yes (1 pt) Mobility Assist Device Used Yes (1 pt) Altered Elimination No (0 pt) Score/Fall Risk Level 3 or more points = High Risk Oriented to surroundings, Maintained a safe environment. Abuse screen: Denies threats or abuse. Denies injuries from another. Nutritional screening: No deficits noted. Tuberculosis screening: No symptoms or risk factors identified. Assessment: 18:28 Reassessment: Patient appears in no apparent distress at this time. Patient and/or db family updated on plan of care and expected duration. Pain level reassessed. Patient is alert, oriented x 3, equal unlabored respirations, skin warm/dry/pink. General: Appears in no apparent distress. comfortable, Behavior is calm, cooperative. Pain: Complains of pain in right leg. Neuro: Level of Consciousness is awake, alert, obeys commands, Oriented to person, place, time, situation. Respiratory: Airway is patent Respiratory effort is even, unlabored, Respiratory pattern is regular, symmetrical. Musculoskeletal: Circulation, motion, and sensation intact. Range of motion: limited in right ankle. 19:22 Reassessment: Patient appears in no apparent distress at this time. Patient and/or kj2 family updated on plan of care and expected duration. Pain level reassessed. Patient is alert, oriented x 3, equal unlabored respirations, skin warm/dry/pink. 20:12 Reassessment: Patient appears in no apparent distress at this time. Patient and/or kj2 family updated on plan of care and expected duration. Pain level reassessed. Patient is alert, oriented x 3, equal unlabored respirations, skin warm/dry/pink. 22:11 Reassessment: Patient appears in no apparent distress at this time. Patient and/or bm8 family updated on plan of care and expected duration. Pain level reassessed. Patient is alert, oriented x 3, equal unlabored respirations, skin warm/dry/pink. Patient denies pain at this time. Patient states feeling better. Patient states symptoms have improved. 23:36 Reassessment: Patient appears in no apparent distress at this time. Patient and/or kj2 family updated on plan of care and expected duration. Pain level reassessed. Patient is alert, oriented x 3, equal unlabored respirations, skin warm/dry/pink. report given to DIETER Hall at [facility] at 2327. 08/19 01:14 Reassessment: Patient appears in no apparent distress at this time. No changes from bm8 previously documented assessment. Patient and/or family updated on plan of care and expected duration. Pain level reassessed. Patient is alert, oriented x 3, equal unlabored respirations, skin warm/dry/pink. Vital Signs: 08/18 16:11 Pulse 74; Resp 18; Temp 97.3(TE); Pulse Ox 100% on R/A; Weight 69.85 kg; Height 5 ft. 4 tm6 in. ; Pain 08/27; 16:12 BP 166 / 68; MAP 95 mmHg; tm6 18:30 BP 188 / 59; Pulse 65; Resp 18; Pulse Ox 100% on R/A; db 19:22 BP 157 / 67; Pulse 71; Resp 18; Pulse Ox 94% on R/A; kj2 20:12 BP 168 / 80; Pulse 72; Resp 18; Pulse Ox 96% on R/A; kj2 22:11 BP 177 / 68; Pulse 67; Resp 15; Temp 97.3; Pulse Ox 100% ; Pain 0/10; bm8 23:35 BP 166 / 61; Pulse 71; Resp 18; Temp 97.6; Pulse Ox 100% on R/A; kj2 08/19 00:46 BP 194 / 67; Pulse 69; Resp 18; Temp 97.9(O); Pulse Ox 100% ; kj2 01:14 BP 147 / 52; Pulse 78; Resp 18; Temp 97.9; Pulse Ox 99% ; Pain 2/10; bm8 08/18 16:11 Body Mass Index 26.43 (69.85 kg, 162.56 cm) tm6 08/18 16:11 Pain Scale: Adult tm6 22:11 Pain Scale: Adult bm8 01:14 Pain Scale: Adult bm8 Alfonso Coma Score: 08/18 22:11 Eye Response: spontaneous(4). Motor Response: obeys commands(6). Verbal Response: bm8 oriented(5). Total: 15. 08/19 01:14 Eye Response: spontaneous(4). Motor Response: obeys commands(6). Verbal Response: bm8 oriented(5). Total: 15. ED Course: 08/18 15:52 Patient arrived in ED. mg5 16:12 Triage completed. tm6 16:15 Arm band placed on right wrist. tm6 16:36 Ace Prakash PA is PHCP. cp 16:36 Ace Corbin MD is Attending Physician. cp 17:56 Missed attempt(s): 22 gauge in right forearm. Bleeding controlled, band aid applied, tm6 catheter tip intact. 18:19 Margaret Coe, RN is Primary Nurse. db 18:28 First set of blood cultures drawn EKG done. db 18:45 Initial lab(s) drawn, by me, sent to lab. Second set of blood cultures drawn by me. db Inserted saline lock: 22 gauge in right forearm, using aseptic technique. 21:48 initiated transfer with Kaleigh Holley \T\ 2148 \T\[facility] . km f 22:11 Patient has correct armband on for positive identification. Placed in gown. Bed in low bm8 position. Side rails up X2. Client placed on continuous cardiac and pulse oximetry monitoring. NIBP monitoring applied. youth nutritional monitor on. Pulse ox on. NIBP on. Door closed. Noise minimized. Warm blanket given. Pillow given. Verbal reassurance given. Head of bed elevated. 22:11 No provider procedures requiring assistance completed. Patient maintains SpO2 bm8 saturation greater than 95% on room air. 23:25 Thai Cruz MD is Attending Physician. cp 08/19 01:14 Provided Education on: NEED FOR TRANSFER. bm8 01:14 Patient transferred, IV remains in place. bm8 06:[address] [facility] \T\2212. Dr Frank, [place] accepted \T\ f 2245. Administered Medications: 08/18 18:50 Drug: HYDROmorphone IVP 1 mg IVP once Route: IVP; Site: right forearm; db 19:25 Follow up: Response: No adverse reaction; Pain is decreased kj2 18:50 Drug: Ondansetron IVP 4 mg IVP once; over 2 minutes Route: IVP; Site: right forearm; db 19:25 Follow up: Response: No adverse reaction kj2 22:07 Drug: vancoMYCIN IVPB 1 grams IVPB once over 2 hrs Route: IVPB; Infused Over: 2 hrs; bm8 Site: right forearm; 23:13 Follow up: Response: No adverse reaction; IV Status: Completed infusion; IV Intake: bm8 250ml 08/19 00:50 Drug: hydrALAZINE IVP 10 mg IVP once Route: IVP; Site: right forearm; kj2 01:16 Follow up: Response: No adverse reaction bm8 Medication: 08/18 22:11 VIS not applicable for this client. bm8 Intake: 23:13 IV: 250ml; Total: 250ml. bm8 Outcome: 20:46 ER care complete, transfer ordered by . 08/19 01:14 Transferred by ground EMS to [facility], Transfer form completed. bm8 X-rays sent w/ patient. Condition: stable Instructed on the need for transfer, Demonstrated understanding of instructions, follow-up care, 01:16 Patient left the ED. bm8 Signatures: Ace Prakash PA PA cp Benton, Danielle, RN RN Brynn Faria mg5 Meron, Otilia MarPepito Coon, RN RN tm6 Tristen Paul, RN RN bm8 Ellen Lui, RN RN kj2
[2024-08-18] MEDS ORDERED: NA CHLORIDE 0.9% 0 ML ONE (21:59)
[2024-08-18] MEDS ORDERED: VANCOMYCIN 1 GM/VIAL ONE (22:05)
[2024-08-18] MEDS ORDERED: NA CHLORIDE 0.9% 250 ML ONE (22:06)
[2024-08-19] MEDS ORDERED: HYDRALAZINE HCL 20 MG/ML VIAL ONE (00:45)
--- NOTE | 2024-08-19 12:56 | EKG ---
Test Date: 2024-08-18 Test Time: 18:28:44 Disk Sharpener: RICK MEASUREMENT RESULTS: Intervals: Rate: 64 MO: 134 QRSD: 84 QT: 410 QTc: 422 [place]: P: 8 MO: 134 QRS: 20 T: 51 INTERPRETIVE STATEMENTS: Normal sinus rhythm Normal ECG No previous ECG available for comparison Electronically Signed On 08-19-24 12:54:22 CDT by Keaton Gilmore
[2024-08-19 14:33] VITALS: TEMP 97.9
[2024-08-19 14:35] VITALS: BP 147/52; O2SAT 99
== END 2024-08-19 01:16 | disposition short-term general hospital (02) ==
LOC: ER 15:48 → SUPCPDRO 15:48 → ER 08-19 01:16
DX: L03.115 Cellulitis of right lower limb (principal); I10 Essential (primary) hypertension; J45.909 Unspecified asthma, uncomplicated; J44.9 Chronic obstructive pulmonary disease, unspecified; M79.7 Fibromyalgia; Z91.018 Allergy to other foods
CPT/HCPCS: 96365; 93005; 87040 ×2; 85025; 36415; 85610; 83605; 80053; 86140; 96375; 99285; J0360; J1170; J2405; J7050; J7030